=== PATIENT | female | born 1995 | race Caucasian/White ===

== ENCOUNTER 2019-04-08 08:38 | Outpatient (CLI) | payer BC, SELFPAY ==
--- NOTE | 2019-04-08 08:45 | US_ITS ---
WS: [id number] ULTRASOUND ABDOMEN CLINICAL INFORMATION: ABD PAIN. DIARRHEA. COMPARISON: None. FINDINGS: Liver Size: Normal. Craniocaudal length: 13.5 cm. Echogenicity: Normal. Surface nodularity: None. Mass (size and location): None. Bile ducts Intrahepatic ducts: Normal. Common bile duct diameter: 4.1 mm. Gallbladder Normal. Gallstones: None. Gallbladder sludge: None. Gallbladder wall thickening: None. Pericholecystic fluid: None. Sonographic Quarles sign: Absent. Pancreas Normal as visualized. Spleen Splenomegaly: None. Craniocaudal length: 7.7 cm. Right kidney: Normal. Hydronephrosis: None. Size: 9.6 cm x 3.8 cm x 4.5 cm Left kidney: Normal. Hydronephrosis: None. Size: 10.1 cm x 4.7 cm x 4.4 cm. Abdominal aorta and IVC Visualized portions are normal. Ascites: None. US/US abdomen complete* [id number] IMPRESSION: Normal abdominal ultrasound
== END 2019-04-08 08:39 | disposition home or self-care (01) ==
PROVIDERS: Visit Provider Nurse Practitioner Family
DX: R10.9 Unspecified abdominal pain (principal); R19.4 Change in bowel habit; R19.7 Diarrhea, unspecified
CPT/HCPCS: 76700

== ENCOUNTER 2023-10-16 19:21 | Outpatient (CLI) | payer BC, MEDICAID, SELFPAY ==
[2023-10-16 19:27] VITALS: BP 135/89; PULSE 86
[2023-10-16 19:28] VITALS: BMI 32.4
--- NOTE | 2023-10-16 19:37 | USR_ITS ---
PROCEDURE INFORMATION: Exam: US Biophysical Profile Without Non-Stress Test Exam date and time: 10/16/2023 7:53 PM Age: 28 years old Clinical indication: Other: Proteinuria, HTN = pre-eclampsia; ; Patient HX: one; Additional info: Pre eclamptic workup TECHNIQUE: Imaging protocol: US biophysical profile without non-stress testing. COMPARISON: US OB >= 14 weeks fetus [id number] 06/10/2023 3:32 PM FINDINGS: heart rate: 136 bpm presentation and position: Cephalic Placenta: Fundal grade 3 placenta without previa. Amniotic fluid (Qualitative): Amniotic fluid volume is normal. Amniotic fluid index: BECCA is 17.13 cm. BIOPHYSICAL PROFILE: breathing (BPP): 2 /2 gross body movement (BPP): 2 /2 tone (BPP): 2 /2 Amniotic fluid (BPP): 2 /2 Biophysical profile score (BPP): 8 /8 MATERNAL ANATOMY: Cervix: Cervical length measures 3.8 cm. US/US OB BPP wo NST [id number] IMPRESSION: 1. Single live intrauterine . 2. Biophysical profile 8/8.
[2023-10-16 19:43] VITALS: BP 128/82; PULSE 84
[2023-10-16 20:45] VITALS: BP 152/92; PULSE 75
[2023-10-16 21:01] VITALS: BP 146/83; PULSE 68
[2023-10-16 21:16] VITALS: BP 135/85; PULSE 75
== END 2023-10-16 21:33 | disposition home or self-care (01) ==
LOC: OPOB 19:22 → OBGYN 19:23
PROVIDERS: Visit Provider Family Medicine
DX: O16.9 Unspecified maternal hypertension, unspecified trimester (principal); O12.10 Gestational proteinuria, unspecified trimester; Z3A.00 Weeks of gestation of pregnancy not specified
CPT/HCPCS: 59025; 76819; 99211

== ENCOUNTER 2023-10-17 00:22 | Inpatient (IN) | payer BC, MEDICAID, SELFPAY ==
[2023-10-17] VITALS (46 sets, daily range): BP systolic 108–144; BP diastolic 61–95; PULSE 63–89; TEMP 36.1–36.4; O2SAT 99; BMI 32.4
[2023-10-17] MEDS: miSOPROStol 100 mcg tablet 25 MCG VAGINAL ×3 (01:42→10:05)
[2023-10-17 03:17] LABS: Basophils % 0.2 %; Eosinophils % 1.1 %; Hematocrit 39.6 % (36-47); Lymphocytes % 20.3 %; Mean Corpuscular HGB Conc 33.8 g/dL (30-55); Mean Corpuscular Hemoglobin 31.6 pg (27-33); Mean Corpuscular Volume 93.4 fl (85-98); Mean Platelet Volume 11.1 fL (7.4-10.4); Monocytes % 7.7 %; Neutrophils % 70.4 %; Platelet Count 262 10^3/cmm (157-399); Red Blood Count 4.24 10^6/uL (3.85-5.65); Red Cell Distribution Width 12.6 % (12.1-15.1); White Blood Count 12.29 10^3/uL (3.29-11.43)
[2023-10-17 03:18] LABS: Eosinophils # 0.1 10^3/uL (0.0-0.8); Lymphocytes # 2.5 10^3/uL (0.8-4.8); Neutrophils # 8.63 10^3/uL (1.8-7.7)
--- NOTE | 2023-10-17 07:46 | PM.OBGYHP ---
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 The patient was noted to have elevated BP in the office this week and labwork showed significant Protein/creatinine ratio of 355. Otherwise, care was unremarkable. labs were unremarkable. Present Details : 1 Para: 0 Obstetrical complications: preeclampsia Medical complications OB: none Labs Rubella: Immune RPR: Negative GBS: Unknown L&D/Induction Specific History Indication for induction OB: medical complication Planned induction method: per misoprostol protocol Review of Systems General: Reports: 10 or more systems reviewed and unremarkable except in HPI and below Medications/Allergies Home Medications Medication Instructions Recorded Confirmed Last Taken Type rtbpoxhh-mcl-Za-FA 1 mg 1 tab PO DAILY 10/16/23 10/16/23 Unknown History tablet Allergies Allergy/AdvReac Type Severity Reaction Status Date / Time No Known Allergies Allergy Verified 08/03/20 09:22 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 PFSH: Social History (Updated 08/03/20 @ 09:24 by Lucie Novak) Smoking and tobacco/nicotine status: never used tobacco/nicotine Second hand smoke exposure: No Alcohol intake: current Alcohol intake frequency: holidays/special occasions only Substance/Drug Use: never Vitals/I&O/Wt Last Vital Signs Pulse 77 10/17/23 07:32 BP 118/63 10/17/23 07:32 O2 Del Method Room Air 10/17/23 00:21 Weight last 48 hrs Weight 75.296 kg Weight 75.296 kg Physical Exam Const: COMMON NORMALS: no acute distress, average body habitus, no limitations and healthy appearing Resp: COMMON NORMALS: normal respiratory effort and No retractions Cardio: COMMON NORMALS: no JVD, regular rate and regular rhythm GI: OTHER: gravid uterus Extremity: COMMON NORMALS: no clubbing, cyanosis or edema Neuro: COMMON NORMALS: moves all extremities, no focal motor deficits and no sensory deficits noted Psych: COMMON NORMALS: mental status grossly normal and cooperative Skin: COMMON NORMALS: no rashes or lesions noted Data 10/17/23 00:40 Results Labs OB ([facility]): Obstetrics US/Biophysical Profile 10/16/23 Blood Type O Positive 10/17/23 Antibody Screen Negative 10/17/23 Hct 39.6 % (36-47) 10/17/23 Hgb 13.40 g/dL (11.27-16.99) 10/17/23 Rho(D) Type Rh positive 10/17/23 Plt Count 262 10^3/cmm (157-399) 10/17/23 A&P Assessment and plan (1) Pre-eclampsia: The patient has pre-eclampsia w/o severe features and warrants an early induction. We will proceed with cytotec for cervical ripening and initiation of induction. Monitor blood pressure. Qualifiers: Trimester: third trimester Qualified Code(s): O14.93 - Unspecified pre-eclampsia, third trimester (2) 38 weeks gestation of : (3) Primigravida in third trimester: Attestations Medical Necessity Statement*: Admit for IOL. Anticipate greater than 2 midnight stay Coding Level of Care Code Acute Code for Chg Fwd Diagnoses Pre-eclampsia in third trimester O14.93 Trimester: third trimester 38 weeks gestation of Z3A.38 Primigravida in third trimester Z34.03
[2023-10-17 10:31] LABS: Amphetamines Screen Urine Negative (Negative); Barbiturates Screen Urine Negative (Negative); Benzodiazepines Screen Urine Positive (Negative); Cocaine Screen Urine Negative (Negative); Opiate Screen Urine Negative (Negative); PCP Screen Urine Negative (Negative); THC Screen Urine Positive (Negative)
[2023-10-17] MEDS: dextrose 5%-lactated ringers 1,000 ML 125 ML IV (15:20)
[2023-10-17] MEDS: oxytocin 30 UNIT/500 ML BAG IV (15:21)
--- NOTE | 2023-10-17 16:59 | PC.NURSE ---
Dr Greenwood informed staff that GBS is negative.
[2023-10-17] MEDS: lactated ringers 1,000 ML 999 ML IV ×2 (22:45→23:46)
--- NOTE | 2023-10-17 23:28 | P.ANESASSM_ITS ---
Pre-Anesthetic Assessment Height/Weight: Height 1.52 m Weight 75.296 kg Temp Pulse BP O2 Del Method 97.5 F L 77 138/92 Room Air 10/17/23 15:24 10/17/23 23:14 10/17/23 23:14 10/17/23 20:25 Preop Diagnosis: labor pain epidural Was Beta Abiel taken within 24 hours: N/A Was Clonidine taken within 24 hours: N/A Exam alert, oriented x 3, clear to auscultation bilaterally and regular rate & rhythm Airway Submandibular: within normal limits Cervical ROM: within normal limits Mallampati: Class II Dentition: full Pulmonary None reported CV/HEM Hypertension None reported Hepatic None reported GI None reported Metabolic None reported Musc/skel None reported Neuropsych None reported Anesthetic Plan ASA status: 2 Anesthesia: Regional (specify below) Risk of > 500 ml blood loss (7ml/kg in children): No Medications/Allergies Home Medications Medication Instructions Recorded Confirmed Last Taken Type dgfitswn-bak-Ip-FA 1 mg 1 tab PO DAILY 10/16/23 10/17/23 Unknown History tablet Allergies Allergy/AdvReac Type Severity Reaction Status Date / Time No Known Allergies Allergy Verified 08/03/20 09:22 Current Medications Generic Name Dose Route Start Last Admin Trade Name Freq PRN Reason Stop Dose Admin Dextrose/Lactated Ringer's 1,000 mls @ 125 mls/hr 10/17/23 00:30 10/17/23 15:20 Dextrose 5%-Lactated Ringers IV 125 mls/hr .Q8H KARLOS Administration Oxytocin 30 unit in 500 mls @ 1 mls/hr 10/17/23 14:30 10/17/23 18:30 Pitocin IV 12 milliunit/min .Q24H KARLOS 12 mls/hr Titration Protocol 1 MILLIUNIT/MIN Lactated Ringer's 1,000 mls @ 999 mls/hr 10/17/23 22:29 10/17/23 22:45 Lactated Ringers IV 999 mls/hr .Q1H1M PRN Administration See label comments Misoprostol 25 mcg 10/17/23 10:00 10/17/23 10:05 Misoprostol 100 Mcg Tablet VAGINAL 25 mcg ONCE PRN Administration cervical ripening PFS Anesthesia Social History (Updated 08/03/20 @ 09:24 by Lucie Novak) Smoking and tobacco/nicotine status: never used tobacco/nicotine Second hand smoke exposure: No Alcohol intake: current Alcohol intake frequency: holidays/special occasions only Substance/Drug Use: never Female Reproductive History : 1 Data Anesthesia 10/17/23 00:40 Short CBC 10/17/23 Range/Units 00:40 WBC 12.29 H (3.29-11.43) 10^3/uL Hgb 13.40 (11.27-16.99) g/dL Hct 39.6 (36-47) % MCV 93.4 (85-98) fl Plt Count 262 (157-399) 10^3/cmm Neut % (Auto) 70.4 % Neut # (Auto) 8.63 H (1.8-7.7) 10^3/uL Blood Bank 10/17/23 00:40 Blood Type O Positive Rho(D) Type Rh positive Antibody Screen Negative Cardiac Studies: 2 No Data to Display
[2023-10-17] MEDS: ROPivacaine syringe 100 MG/50 ML SYRINGE 11 MG EPIDURAL (23:57)
[2023-10-18] VITALS (104 sets, daily range): BP systolic 86–157; BP diastolic 53–102; PULSE 70–121; RESP 16–17; TEMP 36.1–37.3
--- NOTE | 2023-10-18 00:14 | ANES.PROC ---
Anesthesia Procedures Procedure/Date: 10/18/23 epidural Epidural: Time Out Performed: Yes Consents Signed: Procedure Consent Consent: requested by attending/covering physician, from patient, risks and benefits reviewed and patient agrees to proceed Lumbar Level: L3-L4 Epidural position: sitting Epidural procedure: sterile prep of area, 1% lidocaine to numb the area (3 mL), 18 g needle, negative for paresthesia passed, neg for paresthesia, test dose given, 1.5% xylocaine 1:200k epi (5 mL), 0.2% Ropivacaine bolus ml (5 mL), placed PCEA, no systemic response, sterile dressing applied, L.U.D. no apparent complications and 0.2% Ropiavacaine @ mls/hr (11 mL/hr)
[2023-10-18] MEDS: dextrose 5%-lactated ringers 1,000 ML 125 ML IV ×3 (01:19→22:45)
[2023-10-18] MEDS: ROPivacaine syringe 100 MG/50 ML SYRINGE 11 MG EPIDURAL ×2 (03:23→06:50)
--- NOTE | 2023-10-18 07:22 | PM.OBGYPN ---
DIRECTOR PROJECT MANAGEMENT Subjective Subjective: Interval history: This is a 28-year-old G1, P0 that presents for induction of labor secondary to preeclampsia without severe features. Patient received 3 doses of Cytotec followed by Pitocin. The patient has progressed from closed to 4 cm. The patient had continuous rupture membranes at 2220 last night. Patient currently has an epidural but is still feeling quite a bit of discomfort and pressure. She is radha approximately every 3 minutes. Labor: Dilation (cm): 4 Station: -2 Amniotic Membrane Status: Ruptured Monitor Mode: External Contraction Pattern: Regular Status: Category I Vitals/I&O/Wt Last Vital Signs Temp 97.5 F L 10/17/23 15:24 Pulse 80 10/18/23 07:06 BP 115/71 10/18/23 07:06 Pulse Ox 99 10/17/23 23:47 O2 Del Method Room Air 10/17/23 23:30 10/17/23 10/18/23 10/18/23 22:59 06:59 14:59 Intake Total 864.567 / 597.123 5874.666 / 4030.233 Balance 864.567 / 515.604 7889.666 / 4030.233 Weight last 48 hrs Weight 75.296 kg Weight 75.296 kg Physical Exam Const: COMMON NORMALS: no acute distress, average body habitus, no limitations and healthy appearing Neck/C-Spine: COMMON NORMALS: no JVD Resp: COMMON NORMALS: normal respiratory effort and No retractions Cardio: COMMON NORMALS: no JVD, regular rate and regular rhythm RATE: regular rate RHYTHM: regular rhythm GI: OTHER: gravid uterus Extremity: COMMON NORMALS: no clubbing, cyanosis or edema Neuro: COMMON NORMALS: moves all extremities, no focal motor deficits and no sensory deficits noted Psych: COMMON NORMALS: mental status grossly normal and cooperative Skin: COMMON NORMALS: no rashes or lesions noted GENERAL SKIN EXAM: no rashes or lesions noted Urinary Catheter Management: Price: Cath Placed During This Visit: yes Urinary Catheter Date of Insertion: 10/18/23 Urinary Catheter Time of Insertion: 00:52 Data 10/17/23 00:40 A&P Assessment and plan (1) Pre-eclampsia: Continue with Pitocin. We will discuss with anesthesia about increasing her epidural to help her be more comfortable. Provide Vistaril to help with some anxiety and hopefully will get some rest. Qualifiers: Trimester: third trimester Qualified Code(s): O14.93 - Unspecified pre-eclampsia, third trimester (2) 38 weeks gestation of : (3) Primigravida in third trimester: Attestations Medical Necessity Statement*: Patient admitted for induction of labor. Anticipate greater than 2 midnight stay. Coding Level of Care Code Acute Code for g Fwd Diagnoses Pre-eclampsia in third trimester O14.93 Trimester: third trimester 38 weeks gestation of Z3A.38 Primigravida in third trimester Z34.03
[2023-10-18] MEDS: hyDROXYzine 25 mg Capsule 50 MG PO (07:42)
[2023-10-18] MEDS: ROPivacaine syringe 100 MG/50 ML SYRINGE 13 MG EPIDURAL ×5 (10:16→20:40)
--- NOTE | 2023-10-18 11:09 | ANES.PROC ---
Anesthesia Procedures Procedure/Date: 10/18/23 SENIOR QUALITY ASSURANCE ANALYST asked to assess patient due to pressure epidural placed 12 hours prior. Patient has zero motor control of lower extremities and reports pressure in bottom and vagina patient checked and is 6.5cm 0 station. 100 mcg Fentanyl given via epidural. Patient reported not using bolus feature on pump. Educated on demand dose usage.
[2023-10-18] MEDS: lactated ringers 1,000 ML 999 ML IV (17:13)
[2023-10-18] MEDS: oxytocin 30 UNIT/500 ML BAG 600 UNIT IV (23:20)
--- NOTE | 2023-10-18 23:34 | PM.DELIVERY ---
Delivery Note: Date of delivery: October 18, 2023 Pre-delivery diagnoses: Term intrauterine , preeclampsia without severe features Post-delivery diagnoses: Same, chorioamnionitis, viable infant male Procedure: Spontaneous vaginal delivery Delivering Physician: Dr. Mart Greenwood Estimated blood loss (mL): 300 Post Delivery Diagnoses: Chorioamnionitis: Qualifiers: Fetus number: single or unspecified fetus Trimester: third trimester Qualified Code(s): O41.1230 - Chorioamnionitis, third trimester, not applicable or unspecified Pre-Delivery Course: This is a 28-year-old G1, P0 that presented 48 hours ago for induction of labor secondary to preeclampsia without severe features. She did not develop any symptoms consistent with severe features and blood pressures were within normal range. Delivery: Once patient was complete the patient was placed into the normal lithotomy position. Patient started pushing with contractions for approximately 2 hours. During pushing vaginal vault was noted to have significant elevated temperature and the patient had very tender uterus. The patient finally delivered infant's head followed by the infant's body. The infant was then placed on mother's abdomen. After delay the cord was clamped and cut. Placenta was then delivered. Review of the perineum showed small second-degree perineal tear that was repaired with 2-0 Vicryl. At the end the procedure the patient's bleeding was appropriate and uterus was firm. Post-Delivery Status: Stable A&P Assessment and plan (1) Normal spontaneous vaginal delivery: (2) Chorioamnionitis: Clinical diagnosis of chorioamnionitis was made. Orders are placed for ampicillin and gentamicin. Qualifiers: Fetus number: single or unspecified fetus Trimester: third trimester Qualified Code(s): O41.1230 - Chorioamnionitis, third trimester, not applicable or unspecified Coding Level of Care Code Acute Code for Chg Fwd Diagnoses Normal spontaneous vaginal delivery O80 Chorioamnionitis in third trimester, single or unspecified fetus O41.1230 Fetus number: single or unspecified fetus Trimester: third trimester
[2023-10-19] VITALS (9 sets, daily range): BP systolic 130–158; BP diastolic 77–97; PULSE 82–102; RESP 16; TEMP 36.4–37.1; O2SAT 96–98
[2023-10-19] MEDS: ampicillin 2,000 MG in sodium chloride 0.9% (plus) 50 ML 100 MG IV (01:08)
[2023-10-19] MEDS: docusate sodium 100 mg Capsule PO ×2 (08:20→20:11)
[2023-10-19] MEDS: ibuprofen 800 mg tablet PO ×3 (08:20→20:11)
[2023-10-19] MEDS: PRENATAL VIT NO.130/IRON/FOLIC 1 EACH TABLET PO (08:20)
[2023-10-19 12:04] LABS: Hematocrit 28.6 % (36-47); Mean Corpuscular HGB Conc 34.6 g/dL (30-55); Mean Corpuscular Hemoglobin 32.8 pg (27-33); Mean Corpuscular Volume 94.7 fl (85-98); Mean Platelet Volume 10.9 fL (7.4-10.4); Platelet Count 169 10^3/cmm (157-399); Red Blood Count 3.02 10^6/uL (3.85-5.65); Red Cell Distribution Width 12.7 % (12.1-15.1); White Blood Count 18.66 10^3/uL (3.29-11.43)
--- NOTE | 2023-10-19 17:08 | P.PN_ITS ---
MEDICAID ELIGIBILITY SPECIALIST Subjective 2 Subjective: Interval history: This is a 28-year-old G1, P1 that is status post a 1 from spontaneous vaginal delivery. Patient has no acute concerns today. Patient reports good pain control. Lochia has been appropriate. Vital signs stable. Labor: Dilation (cm): 4 Station: +1 Amniotic Membrane Status: L eaking Monitor Mode: Palpation Contraction Pattern: Regular Status: Category I Post /CS: Patient comments OB post-: no complaints [place] baby status: doing well and nursing well feeding status: exclusively breast feeding Vitals/I&O/Wt Last Vital Signs Temp 98.4 F 10/19/23 16:13 Pulse 82 10/19/23 16:13 Resp 16 10/19/23 16:13 BP 147/94 10/19/23 16:13 Pulse Ox 97 10/19/23 09:00 O2 Del Method Room Air 10/19/23 09:00 10/19/23 10/19/23 10/19/23 06:59 14:59 22:59 Intake Total 700 / 3748.333 Output Total 400 / 1000 Balance 300 / 2748.333 Physical Exam 2 Const: COMMON NORMALS: no acute distress, average body habitus, no limitations and healthy appearing Neck/C-Spine: COMMON NORMALS: no JVD Resp: COMMON NORMALS: normal respiratory effort and No retractions Cardio: COMMON NORMALS: no JVD, regular rate and regular rhythm RATE: r egular rate RHYTHM: regular rhythm GI: OTHER: Uterus firm and below umbilicus. No significant uterine tenderness Extremity: COMMON NORMALS: no clubbing, cyanosis or edema Neuro: COMMON NORMALS: moves all extremities, no focal motor deficits and no sensory deficits noted Psych: COMMON NORMALS: mental status grossly normal and cooperative Skin: COMMON NORMALS: no rashes or lesions noted GENERAL SKIN EXAM: no rashes or lesions noted Urinary Catheter Management: Price: Cath Placed During This Visit: yes, but has since been removed by the nurse Reason for Continuing Indwelling Catheter: Decision to DC Catheter Urinary Catheter Date of Insertion: 10/18/23 Urinary Catheter Time of Insertion: 00:52 Date Urinary Catheter Removed: 10/18/23 Time Urinary Catheter Discontinued: 21:28 Data 10/19/23 11:50 A&P Assessment and plan (1) Pre-eclampsia: Continue to monitor blood pressures. Blood pressures have been mildly elevated. Qualifiers: Trimester: third trimester Qualified Code(s): O14.93 - Unspecified pre- eclampsia, third trimester (2) Normal spontaneous vaginal delivery: Continue with routine care. (3) Chorioamnionitis: Symptoms of chorioamnionitis have resolved. Continue antibiotics. Qualifiers: Fetus number: single or unspecified fetus Trimester: third trimester Qualified Code(s): O41.1230 - Chorioamnionitis, third trimester, not applicable or unspecified Attestations 2 Medical Necessity Statement*: Patient admitted for induction of labor. Patient has greater than 2 midnight stay. Possible discharge tomorrow. Coding Level of Care Code Acute Code for Chg Fwd Diagnoses Pre-eclampsia in third trimester O14.93 Trimester: third trimester Normal spontaneous vaginal delivery O80 Chorioamnionitis in third trimester, single or unspecified fetus O41.1230 Fetus number: single or unspecified fetus Trimester: third trimester
[2023-10-20 05:18] VITALS: BP 139/87; PULSE 76; RESP 16; TEMP 36.6; O2SAT 98
--- NOTE | 2023-10-20 06:55 | PM.OBGYDC ---
Discharge Providers PRINT DEVELOPER AUTOMATIC Date of Admission: 10/17/23 00:22 Date of Discharge: 10/20/23 Attending Provider at Admission: Bernard Greenwood MD Attending Provider at Discharge: Bernard Greenwood MD Diagnoses at Discharge Discharge Diagnosis (1) Pre-eclampsia: Status: Acute Qualifiers: Trimester: third trimester Qualified Code(s): O14.93 - Unspecified pre-eclampsia, third trimester (2) Normal spontaneous vaginal delivery: Status: Acute (3) Chorioamnionitis: Status: Acute Qualifiers: Fetus number: single or unspecified fetus Trimester: third trimester Qualified Code(s): O41.1230 - Chorioamnionitis, third trimester, not applicable or unspecified Reason for Visit Reason for Visit: induction of labor Hospital Course Hospital Course This is a 28-year-old G1, P1 that presented for induction of labor due to preeclampsia without severe features. Patient underwent induction using Cytotec followed by Pitocin. The patient eventually delivered a viable male via vaginal delivery without significant complication. care has been unremarkable. Vital signs have been fairly stable although there has been some elevations in blood pressure, but no other significant symptoms. Patient was treated for chorioamnionitis and is completely symptom-free. Information Peripartum Data: Delivery Method: Vaginal Laceration description: Perineal - 2nd Degree complications: none Physical Exam Const: COMMON NORMALS: no acute distress, average body habitus, no limitations and healthy appearing Neck/C-Spine: COMMON NORMALS: no JVD Resp: COMMON NORMALS: normal respiratory effort and No retractions Cardio: COMMON NORMALS: no JVD, regular rate and regular rhythm RATE: regular rate RHYTHM: regular rhythm GI: OTHER: Uterus firm and below umbilicus. No significant uterine tenderness Extremity: COMMON NORMALS: no clubbing, cyanosis or edema Neuro: COMMON NORMALS: moves all extremities, no focal motor deficits and no sensory deficits noted Psych: COMMON NORMALS: mental status grossly normal and cooperative Skin: COMMON NORMALS: no rashes or lesions noted GENERAL SKIN EXAM: no rashes or lesions noted Urinary Catheter Management: Price: Cath Placed During This Visit: yes, but has since been removed by the nurse Reason for Continuing Indwelling Catheter: Decision to DC Catheter Urinary Catheter Date of Insertion: 10/18/23 Urinary Catheter Time of Insertion: 00:52 Date Urinary Catheter Removed: 10/18/23 Time Urinary Catheter Discontinued: 21:28 Discharge Data Studies Completed and Pending Laboratory Results WBC 18.66 10^3/uL (3.29-11.43) H 10/19/23 11:50 RBC 3.02 10^6/uL (3.85-5.65) L 10/19/23 11:50 Hgb 9.90 g/dL (11.27-16.99) L 10/19/23 11:50 Hct 28.6 % (36-47) L 10/19/23 11:50 MCV 94.7 fl (85-98) 10/19/23 11:50 MCH 32.8 pg (27-33) 10/19/23 11:50 MCHC 34.6 g/dL (30-55) 10/19/23 11:50 RDW 12.7 % (12.1-15.1) 10/19/23 11:50 Plt Count 169 10^3/cmm (157-399) 10/19/23 11:50 MPV 10.9 fL (7.4-10.4) H 10/19/23 11:50 Neut % (Auto) 70.4 % 10/17/23 00:40 Lymph % (Auto) 20.3 % 10/17/23 00:40 [place] % (Auto) 7.7 % 10/17/23 00:40 Eos % (Auto) 1.1 % 10/17/23 00:40 Baso % (Auto) 0.2 % 10/17/23 00:40 Neut # (Auto) 8.63 10^3/uL (1.8-7.7) H 10/17/23 00:40 Lymph # (Auto) 2.5 10^3/uL (0.8-4.8) 10/17/23 00:40 [place] # (Auto) 1.0 10^3/uL (0.2-0.9) H 10/17/23 00:40 Eos # (Auto) 0.1 10^3/uL (0.0-0.8) 10/17/23 00:40 Baso # (Auto) 0.0 10^3/uL (0.0-0.1) 10/17/23 00:40 Urine Opiates Screen Negative ng/mL (Negative) 10/17/23 10:00 Ur Barbiturates Screen Negative ng/mL (Negative) 10/17/23 10:00 Ur Phencyclidine Scrn Negative ng/mL (Negative) 10/17/23 10:00 Ur Amphetamines Screen Negative ng/mL (Negative) 10/17/23 10:00 U Benzodiazepines Scrn Positive ng/mL (Negative) H 10/17/23 10:00 Urine Cocaine Screen Negative ng/mL (Negative) 10/17/23 10:00 U Marijuana (THC) Screen Positive ng/mL (Negative) H 10/17/23 10:00 Blood Type O Positive 10/17/23 00:40 Rho(D) Type Rh positive 10/17/23 00:40 Antibody Screen Negative 10/17/23 00:40 Vitals Last Vital Signs Temp 97.9 F 10/20/23 05:18 Pulse 76 10/20/23 05:18 Resp 16 10/20/23 05:18 BP 139/87 10/20/23 05:18 Pulse Ox 98 10/20/23 05:18 O2 Del Method Room Air 10/20/23 05:18 Results Labs OB ([facility]): Obstetrics US/Biophysical Profile 10/16/23 Blood Type O Positive 10/17/23 Antibody Screen Negative 10/17/23 Hct 28.6 % (36-47) L 10/19/23 Hgb 9.90 g/dL (11.27-16.99) L 10/19/23 Rho(D) Type Rh positive 10/17/23 Plt Count 169 10^3/cmm (157-399) 10/19/23 Urine Opiates Screen Negative ng/mL (Negative) 10/17/23 Ur Barbiturates Screen Negative ng/mL (Negative) 10/17/23 Ur Phencyclidine Scrn Negative ng/mL (Negative) 10/17/23 Ur Amphetamines Screen Negative ng/mL (Negative) 10/17/23 U Benzodiazepines Scrn Positive ng/mL (Negative) H 10/17/23 Urine Cocaine Screen Negative ng/mL (Negative) 10/17/23 U Marijuana (THC) Screen Positive ng/mL (Negative) H 10/17/23 Discharge Plan Discharge Patient Disposition: Home Condition: Stable Prescriptions: Continued eezjtvqm-ioc-Gk-FA 1 mg Tablet 1 tab PO DAILY Discharge Orders: Discharge Order (Routine); Ordered 10/20/23 Ordered By: Bernard Greenwood Referrals: Bernard Greenwood MD [Physician] - 6 Weeks Discharge Diet: Usual diet Discharge Activity: Limit activity as instructed Patient Instructions: Depression (DC), Bleeding (DC), Opioid Safety (DC), Preeclampsia and Eclampsia After Delivery (GEN), Hemorrhage (DC), OB Discharge Report, OB Anesthesia Instructions, OB Food/Drug Interaction Guide, OB Care at Home, Opioid Safety, OB Proud Parent Packet, OB Vaginal Deliveries, Abnormal Bleeding Discharge Attestations PRINT DEVELOPER AUTOMATIC Time Spent in Discharge Care*: less than 30 min Coding Level of Care Code Acute Code for Chg Fwd Diagnoses Pre-eclampsia in third trimester O14.93 Trimester: third trimester Normal spontaneous vaginal delivery O80 Chorioamnionitis in third trimester, single or unspecified fetus O41.1230 Fetus number: single or unspecified fetus Trimester: third trimester
--- NOTE | 2023-10-20 08:00 | ANE.PACU2 ---
Inpatient post-anesthesia follow up: Airway intact: Yes Vital signs: Temperature 97.9 F Pulse Rate 75 Respiratory Rate 17 Blood Pressure 140/97 Pulse Oximetry 98 Oxygen Delivery Me thod Room Air Oxygen Flow Rate Fraction of Inspir ed Oxygen Hydration adequate: Yes Nausea and vomiting: No Pain level: 1 Mental status: Baseline Epidural Start/End: Epidural Start Date: 10/17/23 Epidural Start Time: 23:38 Epidural End Date: 10/19/23 Epidural End Time: 01:00
[2023-10-20 11:30] VITALS: BP 140/97; PULSE 75; RESP 17; TEMP 36.6
[2023-10-20 11:36] VITALS: BP 140/97; PULSE 75; RESP 17; TEMP 36.6
== END 2023-10-20 11:38 | disposition home or self-care (01) | DRG 805 ==
LOC: OPOB 00:23 → OBGYN 00:23
PROVIDERS: Admitting Provider Family Medicine; Visit Provider Family Medicine
DX: O14.04 Mild to moderate pre-eclampsia, complicating childbirth (principal); O41.1230 Chorioamnionitis, third trimester, not applicable or unspecified; Z37.0 Single live birth; O70.1 Second degree perineal laceration during delivery; Z3A.38 38 weeks gestation of pregnancy
CPT/HCPCS: 36415; 51702; 59025; 59409; 80306; 85025; 85027; 86850; 86900; 96374; 99211; J0290; J1580; J2590; J2795; J3010; J7120; J7121